=== PATIENT | male | born 1955 | race Caucasian/White ===

== ENCOUNTER 2019-11-15 09:59 | Emergency (ER) | payer OTHER ==
[~2019-11-15] VITALS: Ht 172.7 cm; Wt 95.2 kg
[~2019-11-15 09:59] MED LIST: ALBU90OI61 INH; ALPR.5 PO; ALPR1 PO; CIPR500 PO; CITA20 PO; CYCL10 PO; ERYT.5TO BOTHEYES; FAMO20 PO; FENO160 PO; HYDACE5 PO; IBUP600; METCAR500; METPRE4DP PO; NAPR500 PO; NAPR550 PO; OMEP40CA12 PO; OXYACE5T PO; OXYB5 PO; OXYC10TA19 PO; PHENA100 PO; RANI150 PO; ROSU10TA PO; STOOL SOFTENER100 MG PO; VIIBRYD20 MG PO; ZOLP5 PO
[2019-11-15] MEDS ORDERED: OXYC10ER (10:08)
== END 2019-11-15 10:38 | disposition home or self-care (01) ==
LOC: ER 09:59
DX: R31.9 Hematuria, unspecified (principal); R33.9 Retention of urine, unspecified; Z85.51 Personal history of malignant neoplasm of bladder; Z88.5 Allergy status to narcotic agent; Z87.891 Personal history of nicotine dependence; Z98.890 Other specified postprocedural states
CPT/HCPCS: 51702; 87086; 99283-25

== ENCOUNTER 2019-11-17 10:20 | Emergency (ER) | payer OTHER ==
[~2019-11-17] VITALS: Ht 172.7 cm; Wt 86.2 kg
[~2019-11-17 10:20] MED LIST changes: +OXYC10ER
== END 2019-11-17 12:20 | disposition home or self-care (01) ==
LOC: ER 10:20
DX: Z46.6 Encounter for fitting and adjustment of urinary device (principal); Z88.5 Allergy status to narcotic agent; Z87.891 Personal history of nicotine dependence
CPT/HCPCS: 99282

== ENCOUNTER 2019-11-18 05:37 | Emergency (ER) | payer OTHER ==
[~2019-11-18] VITALS: Ht 170.2 cm; Wt 86.2 kg
== END 2019-11-18 06:25 | disposition home or self-care (01) ==
LOC: ER 05:37
DX: R33.9 Retention of urine, unspecified (principal); R10.30 Lower abdominal pain, unspecified
CPT/HCPCS: 51702

== ENCOUNTER 2020-03-20 05:15 | Emergency (ER) | payer OTHER ==
[~2020-03-20] VITALS: Ht 167.6 cm; Wt 86.2 kg
== END 2020-03-20 06:37 | disposition home or self-care (01) ==
LOC: ER 05:15
DX: R33.9 Retention of urine, unspecified (principal); R31.9 Hematuria, unspecified; F17.200 Nicotine dependence, unspecified, uncomplicated; Z88.5 Allergy status to narcotic agent; Z85.51 Personal history of malignant neoplasm of bladder; Z98.890 Other specified postprocedural states
CPT/HCPCS: 51702; 99283-25

== ENCOUNTER 2020-03-22 04:15 | Emergency (ER) | payer OTHER ==
[~2020-03-22] VITALS: Ht 175.3 cm; Wt 86.2 kg
[2020-03-22] MEDS ORDERED: OXYC10ER PO (04:31)
== END 2020-03-22 05:30 | disposition home or self-care (01) ==
LOC: ER 04:15
DX: R33.9 Retention of urine, unspecified (principal); F17.200 Nicotine dependence, unspecified, uncomplicated; Z85.51 Personal history of malignant neoplasm of bladder
CPT/HCPCS: 51702; 99283-25

== ENCOUNTER 2020-05-10 09:16 | Emergency (ER) | payer OTHER ==
[~2020-05-10] VITALS: Ht 167.6 cm; Wt 85.7 kg
[~2020-05-10 09:16] MED LIST changes: +ATOR80 PO; +Aspir 8181 MG PO; +CLOP75 PO; +METO25 PO; +NITR.4SL SL; +OXYC10ER PO
[2020-05-10 10:55] LABS: Source, Urine Catheter
[2020-05-10 10:58] LABS: Blood, Urine 5+ (Neg); Protein, Urine 4+ (Neg); Specific Gravity, Urine 1.015 (1.003-1.022)
[2020-05-10 10:58] LABS: BASOPHILS ABSOLUTE AUTO 0.03 K/mm3 (0.00-0.23); BASOPHILS PERCENT AUTO 0 % (0-2); EOSINOPHILS ABSOLUTE AUTO 0.04 K/mm3 (0.00-0.68); EOSINOPHILS PERCENT AUTO 0 % (0-6); Hematocrit 42.5 % (37.0-53.0); Hemoglobin 13.5 g/dL (13.5-17.5); IMMATURE GRAN ABSOLUTE AUTO 0.05 K/mm3 (0.00-0.10); IMMATURE GRAN PERCENT AUTO 1 % (0-1); LYMPHOCYTES ABSOLUTE AUTO 1.06 K/mm3 (0.84-5.20); LYMPHOCYTES PERCENT AUTO 10 % (21-46); MONOCYTES ABSOLUTE AUTO 0.46 K/mm3 (0.16-1.47); MONOCYTES PERCENT AUTO 4 % (4-13); Mean Corpuscular HGB 27.1 pg (26.0-34.0); Mean Corpuscular HGB Conc 31.8 g/dL (31.5-36.5); Mean Corpuscular Volume 85 fL (80-100); Mean Platelet Volume 9.9 fL (9.1-12.4); NEUTROPHILS ABSOLUTE AUTO 8.84 K/mm3 (1.96-9.15); NEUTROPHILS PERCENT AUTO 84 % (41-73); Platelet Count 338 K/mm3 (150-400); RDW Coefficient Variation 12.9 % (11.7-14.2); RDW Standard Deviation 39.5 fL (35.1-46.3); Red Blood Cell Count 4.99 M/mm3 (4.30-5.90); White Blood Cell Count 10.48 K/mm3 (4.00-11.30)
[2020-05-10 11:09] LABS: Appearance, Urine Bloody (Clear); Color, Urine Red (P-Yellow); Leukocyte Esterase, Urine 2+ (Neg); pH, Urine 6.5 (5.0-8.0)
[2020-05-10 11:10] LABS: Bilirubin, Urine 1+ (Neg); Glucose Qualitative, Urine 1+ (Neg); Ketones, Urine 1+ (Neg); Nitrite, Urine Pos (Neg); Urobilinogen, Urine 1+ (Normal)
[2020-05-10 11:15] LABS: Alanine Aminotransfer (ALT/SGP 41 U/L (12-78); Albumin, Blood 3.6 g/dL (3.4-5.0); Alk Phos 88 U/L (50-136); Anion Gap 8 mmol/L (6-16); Aspartate Aminotrans (AST/SGOT 27 U/L (12-37); Bilirubin, Total 0.4 mg/dL (0.1-1.0); Blood Urea Nitrogen 25 mg/dL (8-24); Bun/Creatinine Ratio 20.8 (12.0-20.0); CO2, Blood 23 mmol/L (21-32); Calcium, Blood 9.5 mg/dL (8.5-10.1); Chloride, Blood 112 mmol/L (98-108); Globulin, Blood 3.5 g/dL (2.2-4.0); Glomerular Filtration Rate >60 (60-); Glucose, Blood 101 mg/dL (70-99); Potassium, Blood 3.7 mmol/L (3.5-5.5); Sodium, Blood 143 mmol/L (136-145); Total Protein, Blood 7.1 g/dL (6.4-8.2)
[2020-05-10 11:17] LABS: Red Blood Cells, Urine TNTC /hpf (0-2)
[2020-05-10 11:18] LABS: Bacteria Few /hpf; Squamous Epithelial Cells Rare /hpf (Few)
== END 2020-05-10 14:10 | disposition short-term general hospital (02) ==
LOC: ER 09:16
PROVIDERS: Emergency Medicine
DX: R31.9 Hematuria, unspecified (principal); I25.10 Atherosclerotic heart disease of native coronary artery without angina pectoris; Z85.51 Personal history of malignant neoplasm of bladder; Z88.5 Allergy status to narcotic agent; Z79.82 Long term (current) use of aspirin; Z79.899 Other long term (current) drug therapy; F17.210 Nicotine dependence, cigarettes, uncomplicated; Z11.59 Encounter for screening for other viral diseases
CPT/HCPCS: 36415; 51702; 80053; 81001; 85025; 87086; 96374-59; 96375-59; 96376-59; 99284-25; J1170; J2405; J3010; U0002

== ENCOUNTER 2020-06-10 06:50 | Emergency (ER) | payer OTHER ==
[~2020-06-10] VITALS: Ht 167.6 cm; Wt 84.8 kg
== END 2020-06-10 07:27 | disposition home or self-care (01) ==
LOC: ER 06:50
DX: R31.9 Hematuria, unspecified (principal); Z85.51 Personal history of malignant neoplasm of bladder; Z88.5 Allergy status to narcotic agent; Z79.82 Long term (current) use of aspirin; Z79.899 Other long term (current) drug therapy; F17.210 Nicotine dependence, cigarettes, uncomplicated
CPT/HCPCS: 51798; 99283

== ENCOUNTER 2020-06-19 08:57 | Day surgery (SDC) | payer OTHER | END 2020-06-19 22:46 | disposition home or self-care (01) | LOC: WOUND 08:57 | DX: R31.9 Hematuria, unspecified (principal); Z85.51 Personal history of malignant neoplasm of bladder; Z92.21 Personal history of antineoplastic chemotherapy; Z92.3 Personal history of irradiation; Z79.02 Long term (current) use of antithrombotics/antiplatelets; Z79.82 Long term (current) use of aspirin; Z79.899 Other long term (current) drug therapy | CPT/HCPCS: G0463 ==

== ENCOUNTER 2020-08-02 10:49 | Emergency (ER) | payer OTHER ==
[~2020-08-02] VITALS: Ht 170.2 cm; Wt 88.9 kg
[2020-08-02 11:28] LABS: Source, Urine Catheter
[2020-08-02 11:38] LABS: BASOPHILS ABSOLUTE AUTO 0.06 K/mm3 (0.00-0.23); BASOPHILS PERCENT AUTO 1 % (0-2); EOSINOPHILS ABSOLUTE AUTO 0.22 K/mm3 (0.00-0.68); EOSINOPHILS PERCENT AUTO 3 % (0-6); Hematocrit 46.2 % (37.0-53.0); IMMATURE GRAN ABSOLUTE AUTO 0.07 K/mm3 (0.00-0.10); IMMATURE GRAN PERCENT AUTO 1 % (0-1); LYMPHOCYTES ABSOLUTE AUTO 1.82 K/mm3 (0.84-5.20); LYMPHOCYTES PERCENT AUTO 23 % (21-46); MONOCYTES ABSOLUTE AUTO 0.51 K/mm3 (0.16-1.47); MONOCYTES PERCENT AUTO 6 % (4-13); Mean Corpuscular HGB 24.7 pg (26.0-34.0); Mean Corpuscular HGB Conc 30.3 g/dL (31.5-36.5); Mean Corpuscular Volume 82 fL (80-100); Mean Platelet Volume 9.1 fL (9.1-12.4); NEUTROPHILS PERCENT AUTO 66 % (41-73); Platelet Count 537 K/mm3 (150-400); RDW Coefficient Variation 13.4 % (11.7-14.2); RDW Standard Deviation 39.8 fL (35.1-46.3); Red Blood Cell Count 5.67 M/mm3 (4.30-5.90); White Blood Cell Count 7.98 K/mm3 (4.00-11.30)
[2020-08-02 11:39] LABS: Bilirubin, Urine Neg (Neg); Blood, Urine 5+ (Neg); Glucose Qualitative, Urine Neg (Neg); Ketones, Urine Neg (Neg); Leukocyte Esterase, Urine 3+ (Neg); Nitrite, Urine Neg (Neg); Protein, Urine 2+ (Neg); Urobilinogen, Urine NORM (Normal)
[2020-08-02 11:46] LABS: Color, Urine Yellow (P-Yellow)
[2020-08-02 11:47] LABS: Appearance, Urine Hazy (Clear)
[2020-08-02 11:49] LABS: Red Blood Cells, Urine 50-100 /hpf (0-2); Squamous Epithelial Cells Rare /hpf (Few); White Blood Cells, Urine 25-50 /hpf (0-5)
[2020-08-02 11:50] LABS: Bacteria Mod /hpf; Yeast/Fungi Urine Few /hpf
[2020-08-02 11:57] LABS: Alanine Aminotransfer (ALT/SGP 22 U/L (12-78); Albumin, Blood 3.3 g/dL (3.4-5.0); Albumin/Globulin Ratio 0.8 (0.8-1.8); Alk Phos 114 U/L (50-136); Anion Gap 9 mmol/L (6-16); Aspartate Aminotrans (AST/SGOT 10 U/L (12-37); Bilirubin, Total 0.2 mg/dL (0.1-1.0); Blood Urea Nitrogen 14 mg/dL (8-24); CO2, Blood 26 mmol/L (21-32); Calcium, Blood 9.2 mg/dL (8.5-10.1); Chloride, Blood 105 mmol/L (98-108); Creatinine, Blood 1.08 mg/dL (0.60-1.20); Globulin, Blood 4.3 g/dL (2.2-4.0); Glomerular Filtration Rate >60 (60-); Glucose, Blood 94 mg/dL (70-99); Potassium, Blood 4.4 mmol/L (3.5-5.5); Sodium, Blood 140 mmol/L (136-145); Total Protein, Blood 7.6 g/dL (6.4-8.2)
[2020-08-02] MEDS ORDERED: CEFP200 PO (13:17)
== END 2020-08-02 13:28 | disposition home or self-care (01) ==
LOC: ER 10:49
PROVIDERS: Physician Assistant
DX: N39.0 Urinary tract infection, site not specified (principal); Z79.82 Long term (current) use of aspirin; Z79.02 Long term (current) use of antithrombotics/antiplatelets; Z79.899 Other long term (current) drug therapy
CPT/HCPCS: 36415; 74176; 80053; 81001; 83690; 85025; 87077; 87086; 87186; 96361; 96365; 96375; 99284-25; J0696; J1885; J2405; J7030

== ENCOUNTER 2020-08-10 23:02 | Emergency (ER) | payer OTHER ==
[~2020-08-10] VITALS: Ht 167.6 cm; Wt 87.5 kg
[~2020-08-10 23:02] MED LIST changes: +CEFP200 PO
[2020-08-11 00:26] LABS: BASOPHILS ABSOLUTE AUTO 0.06 K/mm3 (0.00-0.23); BASOPHILS PERCENT AUTO 1 % (0-2); EOSINOPHILS PERCENT AUTO 2 % (0-6); Hematocrit 46.9 % (37.0-53.0); Hemoglobin 14.1 g/dL (13.5-17.5); IMMATURE GRAN ABSOLUTE AUTO 0.06 K/mm3 (0.00-0.10); IMMATURE GRAN PERCENT AUTO 1 % (0-1); LYMPHOCYTES ABSOLUTE AUTO 1.82 K/mm3 (0.84-5.20); LYMPHOCYTES PERCENT AUTO 17 % (21-46); MONOCYTES ABSOLUTE AUTO 0.61 K/mm3 (0.16-1.47); MONOCYTES PERCENT AUTO 6 % (4-13); Mean Corpuscular HGB 24.4 pg (26.0-34.0); Mean Corpuscular HGB Conc 30.1 g/dL (31.5-36.5); Mean Corpuscular Volume 81 fL (80-100); Mean Platelet Volume 9.3 fL (9.1-12.4); NEUTROPHILS ABSOLUTE AUTO 7.91 K/mm3 (1.96-9.15); NEUTROPHILS PERCENT AUTO 74 % (41-73); Platelet Count 422 K/mm3 (150-400); RDW Coefficient Variation 13.5 % (11.7-14.2); RDW Standard Deviation 39.8 fL (35.1-46.3); Red Blood Cell Count 5.78 M/mm3 (4.30-5.90); White Blood Cell Count 10.66 K/mm3 (4.00-11.30)
[2020-08-11 00:39] LABS: Alanine Aminotransfer (ALT/SGP 26 U/L (12-78); Albumin, Blood 3.5 g/dL (3.4-5.0); Albumin/Globulin Ratio 0.8 (0.8-1.8); Alk Phos 140 U/L (50-136); Anion Gap 7 mmol/L (6-16); Aspartate Aminotrans (AST/SGOT 12 U/L (12-37); Bilirubin, Total 0.2 mg/dL (0.1-1.0); Blood Urea Nitrogen 15 mg/dL (8-24); Bun/Creatinine Ratio 13.9 (12.0-20.0); CO2, Blood 29 mmol/L (21-32); Calcium, Blood 9.3 mg/dL (8.5-10.1); Chloride, Blood 104 mmol/L (98-108); Creatinine, Blood 1.08 mg/dL (0.60-1.20); Globulin, Blood 4.4 g/dL (2.2-4.0); Glomerular Filtration Rate >60 (60-); Glucose, Blood 126 mg/dL (70-99); Sodium, Blood 140 mmol/L (136-145); Total Protein, Blood 7.9 g/dL (6.4-8.2)
== END 2020-08-11 02:28 | disposition home or self-care (01) ==
LOC: ER 23:02
PROVIDERS: Emergency Medicine
DX: R10.30 Lower abdominal pain, unspecified (principal); Z79.82 Long term (current) use of aspirin; Z79.02 Long term (current) use of antithrombotics/antiplatelets; Z79.899 Other long term (current) drug therapy
CPT/HCPCS: 36415; 74176; 80053; 85025; 99284-25

== ENCOUNTER 2020-09-12 13:33 | Emergency (ER) | payer OTHER ==
[~2020-09-12] VITALS: Ht 167.6 cm; Wt 86.2 kg
[2020-09-12] MEDS ORDERED: Percocet 10-321 EACH PO (13:58)
== END 2020-09-12 15:24 | disposition home or self-care (01) ==
LOC: ER 13:33
DX: T81.41XA Infection following a procedure, superficial incisional surgical site, initial encounter (principal); F17.200 Nicotine dependence, unspecified, uncomplicated; Z79.02 Long term (current) use of antithrombotics/antiplatelets; Z79.82 Long term (current) use of aspirin; Z88.5 Allergy status to narcotic agent; Z79.899 Other long term (current) drug therapy
CPT/HCPCS: 99282

== ENCOUNTER 2020-09-24 00:31 | Day surgery (SDC) | payer OTHER ==
[~2020-09-24 00:31] MED LIST changes: +Percocet 10-321 EACH PO
== END 2020-09-24 23:26 | disposition home or self-care (01) ==
LOC: WOUND 00:31
DX: S31.109S Unspecified open wound of abdominal wall, unspecified quadrant without penetration into peritoneal cavity, sequela (principal); Z85.51 Personal history of malignant neoplasm of bladder; Z92.3 Personal history of irradiation; Z93.2 Ileostomy status; Z88.5 Allergy status to narcotic agent; Z88.8 Allergy status to other drugs, medicaments and biological substances; F17.290 Nicotine dependence, other tobacco product, uncomplicated
CPT/HCPCS: G0463

== ENCOUNTER 2020-10-01 00:26 | Day surgery (SDC) | payer OTHER | END 2020-10-01 23:07 | disposition home or self-care (01) | LOC: WOUND 00:26 | DX: T81.31XD Disruption of external operation (surgical) wound, not elsewhere classified, subsequent encounter (principal); I96 Gangrene, not elsewhere classified; H26.9 Unspecified cataract; I11.0 Hypertensive heart disease with heart failure; I50.9 Heart failure, unspecified; Z85.51 Personal history of malignant neoplasm of bladder; Z92.3 Personal history of irradiation; Z93.2 Ileostomy status; Z79.82 Long term (current) use of aspirin; Z79.02 Long term (current) use of antithrombotics/antiplatelets; Z79.899 Other long term (current) drug therapy; Y83.8 Other surgical procedures as the cause of abnormal reaction of the patient, or of later complication, without mention of misadventure at the time of the procedure | CPT/HCPCS: G0463 ==

== ENCOUNTER 2020-10-22 00:28 | Day surgery (SDC) | payer OTHER | END 2020-10-22 23:37 | disposition home or self-care (01) | LOC: WOUND 00:28 | DX: S31.109D Unspecified open wound of abdominal wall, unspecified quadrant without penetration into peritoneal cavity, subsequent encounter (principal); I25.2 Old myocardial infarction; T81.89XD Other complications of procedures, not elsewhere classified, subsequent encounter; Z85.51 Personal history of malignant neoplasm of bladder; Z92.3 Personal history of irradiation; Z93.2 Ileostomy status; Z95.5 Presence of coronary angioplasty implant and graft; Y83.8 Other surgical procedures as the cause of abnormal reaction of the patient, or of later complication, without mention of misadventure at the time of the procedure | CPT/HCPCS: G0463 ==

== ENCOUNTER 2020-10-29 00:20 | Day surgery (SDC) | payer OTHER | END 2020-10-29 23:59 | disposition home or self-care (01) | LOC: WOUND 00:20 | DX: T81.89XA Other complications of procedures, not elsewhere classified, initial encounter (principal); Y83.8 Other surgical procedures as the cause of abnormal reaction of the patient, or of later complication, without mention of misadventure at the time of the procedure; Z85.51 Personal history of malignant neoplasm of bladder; Z92.3 Personal history of irradiation; Z93.2 Ileostomy status | CPT/HCPCS: 87070; 87075; 87077; 87147; 87186; 87205; A9270 ==

== ENCOUNTER 2020-11-01 19:46 | Emergency (ER) | payer OTHER ==
[~2020-11-01] VITALS: Ht 170.2 cm; Wt 83.5 kg
[2020-11-01 20:30] LABS: Calcium, Ionized (POC) 1.09 mmol/L (1.10-1.46); Chloride (POC) 106 mmol/L (98-108); Creatinine (POC) 1.2 mg/dL (0.8-1.3); Glucose (ISTAT POC) 93 mg/dL (70-99); Hemoglobin (POC) 12.9 g/dL (13.5-17.5); Potassium (POC) 3.3 mmol/L (3.5-5.5); Sodium (POC) 139 mmol/L (135-148); Total CO2 (POC) 21 mmol/L (21-32)
[2020-11-01 20:34] LABS: BASOPHILS ABSOLUTE AUTO 0.03 K/mm3 (0.00-0.23); BASOPHILS PERCENT AUTO 0 % (0-2); EOSINOPHILS PERCENT AUTO 3 % (0-6); Hematocrit 38.9 % (37.0-53.0); Hemoglobin 11.7 g/dL (13.5-17.5); IMMATURE GRAN ABSOLUTE AUTO 0.03 K/mm3 (0.00-0.10); IMMATURE GRAN PERCENT AUTO 0 % (0-1); LYMPHOCYTES ABSOLUTE AUTO 2.21 K/mm3 (0.84-5.20); LYMPHOCYTES PERCENT AUTO 28 % (21-46); MONOCYTES ABSOLUTE AUTO 0.46 K/mm3 (0.16-1.47); MONOCYTES PERCENT AUTO 6 % (4-13); Mean Corpuscular HGB 23.4 pg (26.0-34.0); Mean Corpuscular HGB Conc 30.1 g/dL (31.5-36.5); Mean Corpuscular Volume 78 fL (80-100); Mean Platelet Volume 9.7 fL (9.1-12.4); NEUTROPHILS PERCENT AUTO 64 % (41-73); Platelet Count 311 K/mm3 (150-400); RDW Coefficient Variation 17.5 % (11.7-14.2); RDW Standard Deviation 49.6 fL (35.1-46.3); Red Blood Cell Count 4.99 M/mm3 (4.30-5.90); White Blood Cell Count 8.03 K/mm3 (4.00-11.30)
[2020-11-01 20:46] LABS: Alanine Aminotransfer (ALT/SGP 24 U/L (12-78); Albumin, Blood 3.3 g/dL (3.4-5.0); Albumin/Globulin Ratio 0.9 (0.8-1.8); Alk Phos 121 U/L (50-136); Anion Gap 7 mmol/L (6-16); Aspartate Aminotrans (AST/SGOT 14 U/L (12-37); Bilirubin, Total 0.3 mg/dL (0.1-1.0); Blood Urea Nitrogen 12 mg/dL (8-24); Bun/Creatinine Ratio 10.1 (12.0-20.0); CO2, Blood 22 mmol/L (21-32); Calcium, Blood 8.2 mg/dL (8.5-10.1); Chloride, Blood 111 mmol/L (98-108); Creatinine, Blood 1.19 mg/dL (0.60-1.20); Globulin, Blood 3.7 g/dL (2.2-4.0); Glomerular Filtration Rate >60 (60-); Glucose, Blood 98 mg/dL (70-99); Potassium, Blood 3.4 mmol/L (3.5-5.5); Sodium, Blood 140 mmol/L (136-145)
[2020-11-01 22:21] LABS: Source, Urine Urostomy Bag
[2020-11-01 22:24] LABS: Bilirubin, Urine Neg (Neg); Blood, Urine 2+ (Neg); Glucose Qualitative, Urine Neg (Neg); Ketones, Urine Neg (Neg); Leukocyte Esterase, Urine 1+ (Neg); Nitrite, Urine Neg (Neg); Protein, Urine 1+ (Neg); Urobilinogen, Urine NORM (Normal); pH, Urine 6.5 (5.0-8.0)
[2020-11-01 22:28] LABS: Appearance, Urine Clear (Clear); Color, Urine Yellow (P-Yellow)
[2020-11-01 22:32] LABS: Bacteria Few /hpf; Red Blood Cells, Urine Rare /hpf (0-2); Squamous Epithelial Cells Not Seen /hpf (Few)
== END 2020-11-02 00:22 | disposition home or self-care (01) ==
LOC: ER 19:46
PROVIDERS: Emergency Medicine
DX: T81.41XA Infection following a procedure, superficial incisional surgical site, initial encounter (principal); F17.200 Nicotine dependence, unspecified, uncomplicated; Z79.82 Long term (current) use of aspirin; Z79.02 Long term (current) use of antithrombotics/antiplatelets; Z79.899 Other long term (current) drug therapy; Z88.5 Allergy status to narcotic agent
CPT/HCPCS: 36415; 74177; 80047; 80053; 81001; 85014; 85025; 87077; 87086; 87186; 96361; 96374-59; 96375; 99283-25; J1170; J2405; J7120; Q9967

== ENCOUNTER 2020-11-05 01:38 | Day surgery (SDC) | payer OTHER | END 2020-11-05 22:43 | disposition home or self-care (01) | LOC: WOUND 01:38 | DX: S31.609D Unspecified open wound of abdominal wall, unspecified quadrant with penetration into peritoneal cavity, subsequent encounter (principal); X58.XXXD Exposure to other specified factors, subsequent encounter; Z85.51 Personal history of malignant neoplasm of bladder; Z92.3 Personal history of irradiation; Z93.2 Ileostomy status; Z79.82 Long term (current) use of aspirin; Z79.899 Other long term (current) drug therapy | CPT/HCPCS: G0463 ==

== ENCOUNTER 2020-11-12 00:29 | Day surgery (SDC) | payer OTHER | END 2020-11-12 23:35 | disposition home or self-care (01) | LOC: WOUND 00:29 | DX: S31.609D Unspecified open wound of abdominal wall, unspecified quadrant with penetration into peritoneal cavity, subsequent encounter (principal); T81.30XD Disruption of wound, unspecified, subsequent encounter; I25.2 Old myocardial infarction; Z85.51 Personal history of malignant neoplasm of bladder; Z92.3 Personal history of irradiation; Z92.21 Personal history of antineoplastic chemotherapy; Z95.5 Presence of coronary angioplasty implant and graft; Z93.2 Ileostomy status; Y83.8 Other surgical procedures as the cause of abnormal reaction of the patient, or of later complication, without mention of misadventure at the time of the procedure | CPT/HCPCS: G0463 ==

== ENCOUNTER 2020-11-19 00:24 | Day surgery (SDC) | payer OTHER | END 2020-11-19 23:45 | disposition home or self-care (01) | LOC: WOUND 00:24 | DX: S31.609D Unspecified open wound of abdominal wall, unspecified quadrant with penetration into peritoneal cavity, subsequent encounter (principal); Z85.51 Personal history of malignant neoplasm of bladder; Z92.3 Personal history of irradiation; Z93.2 Ileostomy status | CPT/HCPCS: G0463 ==

== ENCOUNTER 2020-12-15 00:49 | Day surgery (SDC) | payer OTHER | END 2020-12-15 23:27 | disposition home or self-care (01) | LOC: WOUND 00:49 | DX: L59.8 Other specified disorders of the skin and subcutaneous tissue related to radiation (principal); T81.32XA Disruption of internal operation (surgical) wound, not elsewhere classified, initial encounter; Z85.51 Personal history of malignant neoplasm of bladder; Z92.3 Personal history of irradiation; I25.2 Old myocardial infarction; Z92.21 Personal history of antineoplastic chemotherapy; Z93.2 Ileostomy status; Z93.6 Other artificial openings of urinary tract status; Z95.5 Presence of coronary angioplasty implant and graft; Z79.02 Long term (current) use of antithrombotics/antiplatelets | CPT/HCPCS: A9270; G0463 ==

== ENCOUNTER 2020-12-22 00:19 | Day surgery (SDC) | payer OTHER | END 2020-12-22 22:58 | disposition home or self-care (01) | LOC: WOUND 00:19 | DX: S31.609D Unspecified open wound of abdominal wall, unspecified quadrant with penetration into peritoneal cavity, subsequent encounter (principal); T81.31XD Disruption of external operation (surgical) wound, not elsewhere classified, subsequent encounter; L59.8 Other specified disorders of the skin and subcutaneous tissue related to radiation; I25.2 Old myocardial infarction; Y83.8 Other surgical procedures as the cause of abnormal reaction of the patient, or of later complication, without mention of misadventure at the time of the procedure; Y84.2 Radiological procedure and radiotherapy as the cause of abnormal reaction of the patient, or of later complication, without mention of misadventure at the time of the procedure; Z85.51 Personal history of malignant neoplasm of bladder; Z92.3 Personal history of irradiation; Z93.2 Ileostomy status; Z92.21 Personal history of antineoplastic chemotherapy; Z95.5 Presence of coronary angioplasty implant and graft; Z90.6 Acquired absence of other parts of urinary tract; Z90.79 Acquired absence of other genital organ(s); Z79.02 Long term (current) use of antithrombotics/antiplatelets | CPT/HCPCS: A9270; G0463 ==

== ENCOUNTER 2021-01-04 00:49 | Day surgery (SDC) | payer OTHER | END 2021-01-04 23:02 | disposition home or self-care (01) | LOC: WOUND 00:49 | DX: L59.8 Other specified disorders of the skin and subcutaneous tissue related to radiation (principal); S31.609D Unspecified open wound of abdominal wall, unspecified quadrant with penetration into peritoneal cavity, subsequent encounter; I25.2 Old myocardial infarction; Y84.2 Radiological procedure and radiotherapy as the cause of abnormal reaction of the patient, or of later complication, without mention of misadventure at the time of the procedure; Z85.51 Personal history of malignant neoplasm of bladder; Z92.3 Personal history of irradiation; Z93.2 Ileostomy status; Z92.21 Personal history of antineoplastic chemotherapy; Z95.5 Presence of coronary angioplasty implant and graft; Z79.02 Long term (current) use of antithrombotics/antiplatelets | CPT/HCPCS: A9270; G0463 ==

== ENCOUNTER 2021-04-04 10:14 | Emergency (ER) | payer OTHER ==
[~2021-04-04] VITALS: Ht 170.2 cm; Wt 83.0 kg
== END 2021-04-04 11:14 | disposition home or self-care (01) ==
LOC: ER 10:14
DX: N39.0 Urinary tract infection, site not specified (principal); Z79.82 Long term (current) use of aspirin; Z79.899 Other long term (current) drug therapy; Z79.02 Long term (current) use of antithrombotics/antiplatelets
CPT/HCPCS: 99283

== ENCOUNTER 2022-02-22 08:24 | Emergency (ER) | payer OTHER ==
[~2022-02-22] VITALS: Ht 170.2 cm; Wt 78.5 kg
[2022-02-22 09:29] LABS: BASOPHILS ABSOLUTE AUTO 0.04 K/mm3 (0.00-0.23); BASOPHILS PERCENT AUTO 0 % (0-2); EOSINOPHILS ABSOLUTE AUTO 0.01 K/mm3 (0.00-0.68); EOSINOPHILS PERCENT AUTO 0 % (0-6); Hematocrit 49.2 % (37.0-53.0); Hemoglobin 16.2 g/dL (13.5-17.5); IMMATURE GRAN ABSOLUTE AUTO 0.07 K/mm3 (0.00-0.10); IMMATURE GRAN PERCENT AUTO 0 % (0-1); LYMPHOCYTES ABSOLUTE AUTO 1.19 K/mm3 (0.84-5.20); LYMPHOCYTES PERCENT AUTO 7 % (21-46); MONOCYTES ABSOLUTE AUTO 0.96 K/mm3 (0.16-1.47); MONOCYTES PERCENT AUTO 6 % (4-13); Mean Corpuscular HGB 27.4 pg (26.0-34.0); Mean Corpuscular HGB Conc 32.9 g/dL (31.5-36.5); Mean Corpuscular Volume 83 fL (80-100); NEUTROPHILS ABSOLUTE AUTO 15.26 K/mm3 (1.96-9.15); NEUTROPHILS PERCENT AUTO 87 % (41-73); Platelet Count 297 K/mm3 (150-400); RDW Coefficient Variation 12.2 % (11.7-14.2); RDW Standard Deviation 36.9 fL (35.1-46.3); Red Blood Cell Count 5.92 M/mm3 (4.30-5.90); White Blood Cell Count 17.53 K/mm3 (4.00-11.30)
[2022-02-22 09:52] LABS: Albumin, Blood 3.7 g/dL (3.4-5.0); Bilirubin, Total 0.6 mg/dL (0.1-1.0); Bun/Creatinine Ratio 12.2 (12.0-20.0); Calcium, Blood 9.6 mg/dL (8.5-10.1); Creatinine, Blood 1.23 mg/dL (0.60-1.20); Globulin, Blood 3.6 g/dL (2.2-4.0); Potassium, Blood 4.3 mmol/L (3.5-5.5); Total Protein, Blood 7.3 g/dL (6.4-8.2)
[2022-02-22 13:15] LABS: Source, Urine Urostomy Bag
[2022-02-22 13:20] LABS: Bilirubin, Urine Neg (Neg); Blood, Urine 4+ (Neg); Glucose Qualitative, Urine Neg (Neg); Ketones, Urine Neg (Neg); Leukocyte Esterase, Urine 2+ (Neg); Nitrite, Urine Neg (Neg); Protein, Urine 2+ (Neg); Urobilinogen, Urine NORM (Normal)
[2022-02-22 13:29] LABS: Appearance, Urine Hazy (Clear); Color, Urine Yellow (P-Yellow)
[2022-02-22 13:30] LABS: Bacteria Many /hpf; Squamous Epithelial Cells Rare /hpf (Few); White Blood Cells, Urine 25-50 /hpf (0-5)
[2022-02-22] MEDS ORDERED: CEFD300 PO (14:25)
== END 2022-02-22 14:46 | disposition home or self-care (01) ==
LOC: ER 08:24
PROVIDERS: Physician Assistant; Student in an Organized Health Care Education/Training Program
DX: T83.518A Infection and inflammatory reaction due to other urinary catheter, initial encounter (principal); N39.0 Urinary tract infection, site not specified; F17.200 Nicotine dependence, unspecified, uncomplicated; N13.6 Pyonephrosis; I10 Essential (primary) hypertension; Z79.82 Long term (current) use of aspirin; Z79.02 Long term (current) use of antithrombotics/antiplatelets; Z79.899 Other long term (current) drug therapy; Z85.51 Personal history of malignant neoplasm of bladder; Y82.9 Unspecified medical devices associated with adverse incidents; Y92.9 Unspecified place or not applicable; Z88.5 Allergy status to narcotic agent
CPT/HCPCS: 36415; 74177; 80053; 81001; 85025; A9270; J7030; Q9967

== ENCOUNTER 2022-10-14 02:24 | Observation (INO) | payer OTHER ==
[~2022-10-14] VITALS: Ht 170.2 cm; Wt 87.1 kg
[~2022-10-14 02:24] MED LIST changes: +CEFD300 PO
[2022-10-14 03:02] LABS: BASOPHILS ABSOLUTE AUTO 0.06 K/mm3 (0.00-0.23); BASOPHILS PERCENT AUTO 1 % (0-2); EOSINOPHILS PERCENT AUTO 2 % (0-6); IMMATURE GRAN ABSOLUTE AUTO 0.09 K/mm3 (0.00-0.10); IMMATURE GRAN PERCENT AUTO 1 % (0-1); LYMPHOCYTES ABSOLUTE AUTO 2.37 K/mm3 (0.84-5.20); LYMPHOCYTES PERCENT AUTO 22 % (21-46); MONOCYTES ABSOLUTE AUTO 0.65 K/mm3 (0.16-1.47); MONOCYTES PERCENT AUTO 6 % (4-13); Mean Corpuscular HGB 27.4 pg (26.0-34.0); Mean Corpuscular HGB Conc 33.3 g/dL (31.5-36.5); Mean Corpuscular Volume 82 fL (80-100); NEUTROPHILS PERCENT AUTO 69 % (41-73); Platelet Count 314 K/mm3 (150-400); Red Blood Cell Count 5.48 M/mm3 (4.30-5.90); White Blood Cell Count 10.87 K/mm3 (4.00-11.30)
[2022-10-14 03:05] LABS: Calcium, Ionized (POC) 1.18 mmol/L (1.10-1.46); Chloride (POC) 105 mmol/L (98-108); Creatinine (POC) 1.2 mg/dL (0.8-1.3); Glucose (ISTAT POC) 104 mg/dL (70-99); Potassium (POC) 5.4 mmol/L (3.5-5.5); Sodium (POC) 139 mmol/L (135-148); Total CO2 (POC) 28 mmol/L (21-32)
[2022-10-14 03:26] LABS: International Normalized Ratio 0.98; Prothrombin Time Results 10.3 Sec (9.7-11.5)
[2022-10-14 03:37] LABS: Alanine Aminotransfer (ALT/SGP 30 U/L (12-78); Albumin, Blood 3.7 g/dL (3.4-5.0); Albumin/Globulin Ratio 1.1 (0.8-1.8); Alk Phos 76 U/L (50-136); Anion Gap 5 mmol/L (6-16); Aspartate Aminotrans (AST/SGOT 24 U/L (12-37); Bilirubin, Total 0.3 mg/dL (0.1-1.0); Blood Urea Nitrogen 18 mg/dL (8-24); Bun/Creatinine Ratio 15.5 (12.0-20.0); CHOL/HDL RATIO 3.4; CO2, Blood 27 mmol/L (21-32); Calcium, Blood 8.9 mg/dL (8.5-10.1); Chloride, Blood 110 mmol/L (98-108); Cholesterol 205 mg/dL (50-200); Creatinine, Blood 1.16 mg/dL (0.60-1.20); Globulin, Blood 3.4 g/dL (2.2-4.0); Glomerular Filtration Rate 70 (60-); Glucose, Blood 117 mg/dL (70-99); HDL Cholesterol 60 mg/dL (>39); LDL/HDL RATIO 1.6; Low Density Lipoprotein Chol 98 mg/dL (0-110); Magnesium, Blood 2.2 mg/dL (1.6-2.4); Potassium, Blood 3.6 mmol/L (3.5-5.5); Sodium, Blood 142 mmol/L (136-145); Total Protein, Blood 7.1 g/dL (6.4-8.2); Triglycerides 236 mg/dL (30-160); Very Low Density Lipoprot Chol 47 mg/dL (6-32)
--- NOTE | 2022-10-14 05:46 | NUR ---
PT INITALLY CAME IN D/T CHEST PAIN THAT RADIATED DOWN HIS LEFT ARM. FROM ED HE WAS TAKEN TO PHYSIC[facility] WITHIN 1 HOUR. HE ARRIVED TO ICU-1 ALERT AND ORIENTED X 4, ANSWERING QUESTIONS APPROPRIATELY, VS STABLE, NO C/O CHEST PAIN OR SOB. HE IS SR ON THE MONITOR WITH HR IN THE 70S. HE REMAINS ON RA WITH O2 SAT 98%. TR BAND TO RIGHT RADIAL SITE IS INTACT AND HAS 12ML OF AIR IN. HIS ACT WAS >200, SO WILL START TO REMOVE IN [address] ERAZO CAME TO BEDSIDE TO EVALUATE PT. SPOKE WITH DR. CHAVARRIA AND HE INFORMED THIS RN THAT THE PT COULD POTENTIALLY BE DISCHARGED LATER TODAY OR 10/15, THE PT WOULD JUST NEED SOME ASSISTANCE WITH HIS MEDS.
--- NOTE | 2022-10-14 07:05 | NUR ---
3ML REMOVED FROM RIGHT RADIAL TR BAND. 9ML REMAINING
--- NOTE | 2022-10-14 09:11 | NUR ---
Care Assumed 0700 Right raidal site with TR band in place, fully deflated at 0830 . Will remove TR band in one hour per order. Wrist board in place. Pt reports pain (05/25) @ site upon start of shift. Pain has improved after treatment per emar. Site has scant dired blood. Pt denies CP. VSS. Pts son at bedside and updated by nightshift nurse. Uostomy in place, draning to gravity.
--- NOTE | 2022-10-14 09:31 | NUR ---
Provider visit Dr. Butler in to see patient. Pt to be discharged by the end of the day. Ambulate patient and arrange for home medication. Pt currently having ECHO done.
--- NOTE | 2022-10-14 10:07 | NUR ---
TR BAND removed and opsite dressing in place. Scant dried blood. Nontender and no hematoma.
--- NOTE | 2022-10-14 12:09 | NUR ---
Update- Provider visit Dr. Velázquez in to see patient. Pt to be discharged by the end of the day. Provider will put in orders for discharge. Pt to be discharged on Plavix due to insurance not providing coverage for Brilinta. TR band removed. Opsite with scant dried blood and pain 1/10, slight throbing per pt. No numbness/tingling. Pt would like to sleep for now. Once awake plan to ambulate. VSS. Son and grandson in to see patient. Per pts son, Skip, patient is noncompliant with medication, diet, and lifestyle changes. Education provided and will continue to reinforce. Pt states he will take medication and unwilling to make lifestyle changes.
--- NOTE | 2022-10-14 15:30 | NUR ---
Pt able to ambulate in room without assistance. VSS. NSR. Right radial site C/D/I with opsite dressing. No hemtoma and nontender.
--- NOTE | 2022-10-14 15:33 | NUR ---
Provider Call - Six beat run of [place] Asymptomatic. Pt ambulated after and remains asymptomatic. No CP and remains in NSR. Right radial site C/D/I opsite and no hematoma. Dr. Velázquez called and updated. Recieved orders for discharge. Dr. Butler called and left message with personnel assistant in regards to patients rhythm change and discharge later today.
--- NOTE | 2022-10-14 15:41 | NUR ---
Provider Call- Dr.Osman Dr. Butler called to start patient on 600 mg of Plavix (one time dose) before discharge tonight.
[2022-10-14] MEDS ORDERED: LISI5 PO (16:03)
[2022-10-14] MEDS ORDERED: ATOR80 PO (16:03)
[2022-10-14] MEDS ORDERED: ASPI81CH PO (16:03)
[2022-10-14] MEDS ORDERED: CLOP75 PO (16:04)
[2022-10-14] MEDS ORDERED: METO25ER PO (16:04)
--- NOTE | 2022-10-14 17:47 | NUR ---
Discharge Home Patient discharged home with son via car. Pt able to ambulate to car. Explained home medication and emphasized the importance of medication compliance. Son and patient state understanding. All patient belongings sent home. VSS. Discharge papers provided.
[2022-10-15] MEDS ORDERED: Aspir 8181 MG PO (19:48)
== END 2022-10-14 17:49 | disposition home or self-care (01) ==
LOC: ER 02:24 → ICUW 02:58 → ICUE 02:58 → ER 02:58 → ICUE 02:59 → ICUW 02:59 → ICUE 04:13 → ICUW 04:13 → ICUE 05:09
PROVIDERS: Student in an Organized Health Care Education/Training Program; ADMIT Internal Medicine Cardiovascular Disease
DX: I21.3 ST elevation (STEMI) myocardial infarction of unspecified site (principal); I25.10 Atherosclerotic heart disease of native coronary artery without angina pectoris; I11.0 Hypertensive heart disease with heart failure; I50.20 Unspecified systolic (congestive) heart failure; I27.20 Pulmonary hypertension, unspecified; E78.5 Hyperlipidemia, unspecified; F17.210 Nicotine dependence, cigarettes, uncomplicated; I25.2 Old myocardial infarction; Z79.899 Other long term (current) drug therapy; Z88.5 Allergy status to narcotic agent; Z88.2 Allergy status to sulfonamides
CPT/HCPCS: 36415; 71045; 76937; 80047; 80053; 80061; 83735; 84484; 85014; 85025; 85347; 85610; 85730; 86850; 86900; 86901; 93005; 93010; 93306; 93454; 96374; 96375; 99152; 99153; 99285-25; A9270; C1725; C1769; C1874; C1887; C1894; C9600; G0378; J1644; J2250; J2270; J2370; J2405; J3010; J7030; J7050; Q9967

== ENCOUNTER 2023-10-13 08:17 | Emergency (ER) | payer MEDICARE, OTHER ==
[~2023-10-13] VITALS: Ht 167.6 cm; Wt 81.7 kg
[~2023-10-13 08:17] MED LIST changes: +ASPI81CH PO; +LISI5 PO; +METO25ER PO
[2023-10-13 10:56] LABS: BASOPHILS ABSOLUTE AUTO 0.04 K/mm3 (0.00-0.23); BASOPHILS PERCENT AUTO 1 % (0-2); EOSINOPHILS PERCENT AUTO 3 % (0-6); Hematocrit 44.6 % (37.0-53.0); Hemoglobin 14.3 g/dL (13.5-17.5); IMMATURE GRAN ABSOLUTE AUTO 0.07 K/mm3 (0.00-0.10); IMMATURE GRAN PERCENT AUTO 1 % (0-1); LYMPHOCYTES ABSOLUTE AUTO 1.83 K/mm3 (0.84-5.20); LYMPHOCYTES PERCENT AUTO 23 % (21-46); MONOCYTES ABSOLUTE AUTO 0.38 K/mm3 (0.16-1.47); MONOCYTES PERCENT AUTO 5 % (4-13); Mean Corpuscular HGB 26.8 pg (26.0-34.0); Mean Corpuscular HGB Conc 32.1 g/dL (31.5-36.5); Mean Corpuscular Volume 84 fL (80-100); Mean Platelet Volume 9.3 fL (9.1-12.4); NEUTROPHILS ABSOLUTE AUTO 5.41 K/mm3 (1.96-9.15); NEUTROPHILS PERCENT AUTO 68 % (41-73); Platelet Count 289 K/mm3 (150-400); RDW Coefficient Variation 12.9 % (11.7-14.2); Red Blood Cell Count 5.33 M/mm3 (4.30-5.90); White Blood Cell Count 7.93 K/mm3 (4.00-11.30)
[2023-10-13 11:12] LABS: Albumin, Blood 3.5 g/dL (3.4-5.0); Bilirubin, Total 0.4 mg/dL (0.1-1.0); Bun/Creatinine Ratio 11.6 (12.0-20.0); Creatinine, Blood 1.38 mg/dL (0.60-1.20); Globulin, Blood 3.4 g/dL (2.2-4.0); Total Protein, Blood 6.9 g/dL (6.4-8.2)
[2023-10-13 14:30] VITALS: BP 138/101
[2023-10-13] MEDS ORDERED: PRED20 PO (14:31)
== END 2023-10-13 15:01 | disposition home or self-care (01) ==
LOC: ER 08:17
PROVIDERS: Emergency Medicine
DX: M54.18 Radiculopathy, sacral and sacrococcygeal region (principal); N13.4 Hydroureter; I25.10 Atherosclerotic heart disease of native coronary artery without angina pectoris; I25.2 Old myocardial infarction; Z85.51 Personal history of malignant neoplasm of bladder; Z79.82 Long term (current) use of aspirin; Z79.02 Long term (current) use of antithrombotics/antiplatelets; Z79.899 Other long term (current) drug therapy; F17.290 Nicotine dependence, other tobacco product, uncomplicated; Z88.5 Allergy status to narcotic agent
CPT/HCPCS: 72158; 80053; 85025; 99284-25; A9579

== ENCOUNTER 2024-01-24 21:08 | Emergency (ER) | payer MEDICARE, OTHER ==
[~2024-01-24] VITALS: Ht 167.6 cm; Wt 91.2 kg
[~2024-01-24 21:08] MED LIST changes: +PRED20 PO
[2024-01-24 21:19] VITALS: BP 192/117
== END 2024-01-24 22:19 | disposition home or self-care (01) ==
LOC: ER 21:08
DX: S46.211A Strain of muscle, fascia and tendon of other parts of biceps, right arm, initial encounter (principal); F17.290 Nicotine dependence, other tobacco product, uncomplicated; I25.10 Atherosclerotic heart disease of native coronary artery without angina pectoris; I25.2 Old myocardial infarction; Z88.5 Allergy status to narcotic agent; X50.0XXA Overexertion from strenuous movement or load, initial encounter; Y93.89 Activity, other specified
CPT/HCPCS: 99282

== ENCOUNTER → 2024-05-03 | Outpatient (CLI) | payer MEDICARE, OTHER | END | disposition home or self-care (01) | LOC: LAB 09:28 → LAB SHORT 09:28 | DX: C44.1192 Basal cell carcinoma of skin of left lower eyelid, including canthus (principal) | CPT/HCPCS: 88305 ==